=== PATIENT | male | born 1985 | race Two or more races ===

== ENCOUNTER 2023-01-27 05:25 | Day surgery (SDC) | payer OTHER ==
[~2023-01-27 05:25] MED LIST: ATORVASTATIN CA20 MG PO; FARXIGA5 MG PO; GABAPENTIN300 M2 PO; LISINOPRIL20 MG PO; [UNRECOGNIZED DRUG - OTHER]
[2023-01-27] MEDS ORDERED: AMOX-CLAV 875-1 EACH PO (14:07)
[2023-01-27] MEDS ORDERED: MELOXICAM15 MG PO (14:07)
== END 2023-01-27 20:00 | disposition home or self-care (01) ==
LOC: CIR.AMB 05:25
PROVIDERS: ATTEND Surgery
DX: N47.1 Phimosis (principal); N47.7 Other inflammatory diseases of prepuce; Z20.822 Contact with and (suspected) exposure to COVID-19; I10 Essential (primary) hypertension; E11.9 Type 2 diabetes mellitus without complications; E11.40 Type 2 diabetes mellitus with diabetic neuropathy, unspecified; Z79.84 Long term (current) use of oral hypoglycemic drugs